=== PATIENT | male | born 1990 | race Caucasian/White ===

== ENCOUNTER → 2020-12-22 | Outpatient (CLI) | payer OTHER ==
--- NOTE | 2020-12-22 10:26 | XR ---
EXAMINATION TYPE: XR humerus 2 views RT, XR shoulder complete 3 views RT DATE OF EXAM: 12/22/2020 COMPARISON: NONE HISTORY: 30-year-old male sudden biceps pain with heavy lifting. FINDINGS: Shoulder: AC joint appears congruent and intact. Subacromial space is preserved. Small delineation to the great er tuberosity. Glenohumeral joint is intact. No acute fracture, subluxation, or dislocation. Visualiz ed right hemithorax is clear. Humerus: No elbow joint effusion. No acute fracture identified. IMPRESSION (shoulder and humerus): No acute osseous abnormality seen. If concern for injury to the biceps tendon, MRI can be performed.
== END ==
LOC: RADXRMAIN 09:32
PROVIDERS: ATTEND Emergency Medicine
DX: M79.621 Pain in right upper arm (principal)